=== PATIENT | male | born 1980 | race Caucasian/White ===

== ENCOUNTER 2017-10-22 17:47 | Emergency (ER) | payer OTHER ==
[~2017-10-22] VITALS: Ht 180.3 cm; Wt 86.2 kg
--- NOTE | ~2017-10-22 | EKG ---
[address] [place] [address] ELECTROCARDIOGRAM REPORT Name: CRYS WALLACE Desmond [facility] [id number] Admission: 10/22/17 Attend Phys: Discharge: 10/22/17 Date of : 76 Report #: [id number] THIS REPORT FOR: //name// [facility] ED Test Date: 2017-10-22 Test Time: 17:52:56 Pat Name: CRYS WALLACE Department: Room: Gender: Web Development Intern: MZOOK : 1980 Requested By: Abilio Calixto Order Number: [id number] MD: Tim Brown Measurements Intervals [place] Rate: 92 P: 63 MT: 132 QRS: 42 QRSD: 92 T: 50 QT: 369 QTc: 457 Interpretive Statements Sinus rhythm Normal tracing No previous ECG available for comparison Electronically Signed On 10-23-2017 19:16:11 CDT by Tim Brown [email or web address] <ELECTRONICALLY SIGNED> By: Tim Brown MD, [facility] 10/23/17 1916 1752 1752 Tim Brown MD, FACC /EPI
[2017-10-22 18:21] LABS: ABSOLUTE NEUTROPHILS 7.4 thou/uL (1.4-8.2); BASOPHILS 0.7 % (0.0-2.0); EOSINOPHILS 1.7 % (0.0-3.0); HEMATOCRIT 44.1 % (42.0-52.0); HEMOGLOBIN 15.1 gm/dL (14.0-18.0); LYMPHOCYTES 23.2 % (24.0-44.0); MCH 29.3 pg (26.0-34.0); MCHC 34.2 g/dL (28.0-37.0); MCV 85.7 fL (80.0-100.0); MONOCYTES 10.8 % (1.0-8.0); PLATELET COUNT 222 thou/uL (150-400); POLYS 63.6 % (36.0-66.0); RBC 5.14 mil/uL (4.50-6.00); RDW 13.8 % (10.5-14.5); WBC 11.7 thou/uL (4.0-11.0)
[2017-10-22 18:28] LABS: ANION GAP 6 mmol/L (7-16); BUN 18 mg/dL (7-18); CALCIUM 9.2 mg/dL (8.5-10.1); CHLORIDE 105 mmol/L (98-107); CO2 28 mmol/L (21-32); GLUCOSE 106 mg/dL (74-106); POTASSIUM 3.7 mmol/L (3.5-5.1); SODIUM 139 mmol/L (136-145)
[2017-10-22 18:37] LABS: TROPONIN-I < 0.04 ng/mL (<0.06)
[2017-10-22] MEDS ORDERED: TIZANIDINE HCL4 MG PO (19:23)
[2017-10-22] MEDS ORDERED: NAPROSYN500 MG PO (19:23)
[2017-10-22 19:28] LABS: AMP/METHAMP POSITIVE (Negative); BARBITURATES Negative (Negative); BENZODIAZEPINES Negative (Negative); COCAINE Negative (Negative); METHADONE Negative (Negative); OPIATES Negative (Negative); PCP Negative (Negative)
[2017-10-22 19:42] VITALS: BP 132/82
== END 2017-10-22 19:44 | disposition home or self-care (01) ==
LOC: ER 17:47
PROVIDERS: Nurse Practitioner
DX: R07.89 Other chest pain (principal); F17.210 Nicotine dependence, cigarettes, uncomplicated

== ENCOUNTER 2017-11-11 16:24 | Emergency (ER) | payer OTHER ==
[~2017-11-11] VITALS: Ht 182.9 cm; Wt 83.9 kg
--- NOTE | ~2017-11-11 | HC ---
[facility] [place] [address] CONSULTATION Name: MADISONCRYS Desmond Room #: [id number] Admission: 11/11/17 Attend Phys: Discharge: 11/11/17 Date of : 76 Report #: [id number] THIS REPORT FOR: //name// CC: Vickey Haywood DATE OF SERVICE: 11/11/2017 CHIEF COMPLAINT: Nail gun injury to the right hand. HISTORY OF PRESENT ILLNESS: This is a 37-year-old gentleman who shot a nail from a nail gun into his right hand. The patient was subsequently evaluated in the Emergency Room. He is right-hand dominant. The nail entered volarly and is then present dorsally on his wrist, with approximately 5 mm extending out from the dorsum of his wrist. After attempts to remove the foreign body, Orthopedics was consulted to see the patient. The X-rays are reviewed, noting a thin nail that extends dorsally out the dorsal aspect of the wrist, apparently through the capitate hamate joint space. Under sterile conditions, the patient's wrist was then attended to. PROCEDURE: Under sterile conditions, [facility] Examiner was utilized to remove the nail from the dorsal wrist. This occurred without any complications. The patient's hand was neurovascularly intact. He had albeit with pain through his wrist with any flexion and extension. IMPRESSION AND PLAN: Foreign body, left wrist, removed in the Emergency Room by myself. The patient was then discharged to home on oral antibiotics and pain medications. He is to follow up with Dr. Hendrix in my office within the next week. By: 0828 [id number] Jd White MD /nt
[~2017-11-11 16:24] MED LIST: NAPROSYN500 MG PO; TIZANIDINE HCL4 MG PO
[2017-11-11] MEDS ORDERED: KEFLEX500 M1 PO ×2 (16:59→17:19)
[2017-11-11] MEDS ORDERED: HYDROCODONE-AP1 EAC6 PO ×2 (16:59→17:19)
[2017-11-11 19:10] VITALS: BP 136/92
== END 2017-11-11 19:12 | disposition home or self-care (01) ==
LOC: ER 16:24
DX: S61.542A Puncture wound with foreign body of left wrist, initial encounter (principal); F17.210 Nicotine dependence, cigarettes, uncomplicated; W31.89XA Contact with other specified machinery, initial encounter; Y93.89 Activity, other specified; Y92.89 Other specified places as the place of occurrence of the external cause; Y99.8 Other external cause status

== ENCOUNTER 2019-05-05 17:43 | Emergency (ER) | payer OTHER ==
[~2019-05-05] VITALS: Ht 180.3 cm; Wt 86.2 kg
[~2019-05-05 17:43] MED LIST changes: +HYDROCODONE-AP1 EAC6 PO; +KEFLEX500 M1 PO
[2019-05-05 18:41] VITALS: BP 120/74
[2019-05-05] MEDS ORDERED: DOXYCYCLINE 10100 MG PO (18:44)
== END 2019-05-05 18:47 | disposition home or self-care (01) ==
LOC: ER 17:43
DX: L03.115 Cellulitis of right lower limb (principal); F19.10 Other psychoactive substance abuse, uncomplicated; F17.210 Nicotine dependence, cigarettes, uncomplicated

== ENCOUNTER 2020-03-25 14:59 | Emergency (ER) | payer OTHER ==
[~2020-03-25] VITALS: Ht 180.3 cm; Wt 86.2 kg
[~2020-03-25 14:59] MED LIST changes: +DOXYCYCLINE 10100 MG PO
[2020-03-25 15:14] LABS: URINE BILIRUBIN NEGATIVE (Negative); URINE BLOOD TRACE (Negative); URINE CLARITY CLEAR; URINE COLOR YELLOW; URINE GLUCOSE-RANDOM* NEGATIVE (Negative); URINE KETONES NEGATIVE (Negative); URINE LEUKOCYTES-REFLEX 2+ (Negative); URINE NITRITE-REFLEX NEGATIVE (Negative); URINE PROTEIN (DIPSTICK) NEGATIVE (Negative); URINE SPECIFIC GRAVITY 1.025 (1.005-1.035); URINE UROBILINOGEN 0.2 E.U./dl (0.2-1.0)
[2020-03-25 15:24] LABS: SQUAMOUS 0-3 Few /LPF (0-3); URINE WBC-REFLEX >25 Many /HPF (0-5)
[2020-03-25 15:25] LABS: BACTERIA-REFLEX 1-9 Few /HPF (None Seen); CRYSTALS None Seen /LPF (None Seen); URINE RBC None Seen /HPF (0-2)
[2020-03-25 16:26] VITALS: BP 146/96
== END 2020-03-25 16:30 | disposition home or self-care (01) ==
LOC: ER 14:59
PROVIDERS: Physician Assistant
DX: Z20.2 Contact with and (suspected) exposure to infections with a predominantly sexual mode of transmission (principal); R36.9 Urethral discharge, unspecified; F17.210 Nicotine dependence, cigarettes, uncomplicated

== ENCOUNTER 2021-08-09 23:02 | Emergency (ER) | payer OTHER | END 2021-08-10 | disposition left against medical advice (07) | LOC: ER 23:02 | DX: R11.2 Nausea with vomiting, unspecified (principal); Z53.21 Procedure and treatment not carried out due to patient leaving prior to being seen by health care provider ==